=== PATIENT | male | born 2000 | race Caucasian/White ===

== ENCOUNTER 2020-05-23 01:24 | Outpatient (CLI) | payer OTHER, SELFPAY ==
[2020-05-23 19:31] LABS: SARS-CoV-2 RNA PCR Negative
== END 2020-05-23 01:25 | disposition home or self-care (01) ==
LOC: ANHCOVIDDT 01:27
PROVIDERS: PCP Pediatrics; Visit Provider Otolaryngology
DX: Z01.818 Encounter for other preprocedural examination (principal); Z20.828 Contact with and (suspected) exposure to other viral communicable diseases
CPT/HCPCS: 87635; C9803; U0003

== ENCOUNTER 2020-05-26 00:18 | Day surgery (SDC) | payer OTHER, SELFPAY ==
[2020-05-18 12:09] VITALS: BMI 25.9
--- NOTE | 2020-05-25 09:57 | P.PNAN_ITS ---
Anes - Initial Pre Proc Eval Procedure: Operation Date: 05/26/20 07:45 Proposed Procedures p Left Tympanoplasty - Olaf Quinones MD Date/Time: 05/25/20 09:57 Surgeon: Olaf Quinones MD Pre Op Diagnosis: Left tympanic membrane perforation Patient Data Age: 19 Gender: M Height: 1.78 m Weight: 81.8 kg Allergies Allergy/AdvReac Type Severity Reaction Status Date / Time No Known Allergies Allergy Mild Unverified 05/18/20 12:17 Home Medications Medication Instructions Recorded Confirmed Type montelukast 10 mg tablet 10 mg PO DAILY 11/28/19 05/18/20 History multivitamin [Multivitamin-20] 1 tablet PO DAILY 05/18/20 05/18/20 History Patient hx anesthesia problems: none Family hx anesthesia problems: none [facility] Past Medical History Medical History (Updated 05/25/20 @ 09:58 by Ney Beth DO) History of Langford's sarcoma s/p chemo/radiation Surgical History Surgical History (Updated 05/25/20 @ 09:58 by Ney Beth DO) S/P 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 Social History Social History Smoking status: Never smoker Second hand tobacco smoke exposure: No Alcohol intake: current Drinks per week: 6 Substance use: never Substance use type: does not use Living arrangements: with family Spiritual care concerns: No Anes - Eval Final PreProcedure Day of Procedure 05/25/20 09:57 Patient weight: overweight Heart: regular rate and rhythm Lungs: clear to auscultation and normal air movement Airway: Mallampati scale class II Neurological: alert and oriented Last oral intake: >/= 8 hours ASA classification: II Emergent: no Anesthetic plan: proceed Anesthesia type and monitoring: general LMA and standard monitoring Informed Consent: The patient's anesthetic plan and its attendant risks and benefits were discussed with the patient/family/POA. Questions were solicited and answers provided to the satisfaction of the patient/family/POA.
--- NOTE | 2020-05-26 06:03 | PM.HPGS ---
History of Present Illness History of Present Illness Consent: Risks, benefits, and alternatives have been discussed and questions answered. Patient agrees to proceed with procedure. 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 Social History Social History Smoking status: Never smoker Second hand tobacco smoke exposure: No Alcohol intake: current Drinks per week: 6 Substance use: never Substance use type: does not use Living arrangements: with family Spiritual care concerns: No Meds Home Medications and Allergies Home Medications Medication Instructions Recorded Confirmed Type montelukast 10 mg tablet 10 mg PO DAILY 11/28/19 05/18/20 History multivitamin [Multivitamin-20] 1 tablet PO DAILY 05/18/20 05/18/20 History Allergies Allergy/AdvReac Type Severity Reaction Status Date / Time No Known Allergies Allergy Mild Unverified 05/18/20 12:17 Assessment and Plan Additional Plan Plan is a left tympanoplasty
--- NOTE | 2020-05-26 06:04 | WPDHPUPDATE1 ---
History and Physical Update Update Date/Time: 05/26/20 06:04 History and Physical has been reviewed, including an updated exam of the patient. There are NO changes in the patient's condition. Risks, benefits, and alternatives have been discussed and questions answered. Patient agrees to proceed with procedure.
[2020-05-26 06:16] VITALS: BP 120/68; PULSE 83; RESP 16; TEMP 36.1; O2SAT 100
[2020-05-26] MEDS: LACTATED RINGERS 1,000 ML 30 ML IV CONT (07:05)
[2020-05-26] MEDS: LIDO 1%/EPINEPHRINE 1:100,000 50 ML VIAL INFILTRATE (07:40)
[2020-05-26] MEDS: CIPROFLOXACIN HCL 0.3% OP SOLN 2.5 ML BTL 4 DROP EACH EAR (07:42)
[2020-05-26] MEDS: NEOMYCIN/POLYMYXIN B/PRAMOXINE 15 GM CREAM 1 APPLIC TOPICAL (07:59)
--- NOTE | 2020-05-26 08:11 | PM.PROC ---
Procedure Note - Detailed Date of procedure: 05/26/20 Pre-op diagnosis: Left tympanic membrane perforation Post-op diagnosis: same Procedure performed: Tympanoplasty Description of procedure: Patient prepped and draped, the ear was inspected inspection revealed a [] perforation. The vascular strip was injected with xylocaine with adrenaline. Postauricular region was injected with xylocaine with adrenaline and incision was made and temporalis Parres fascia graft harvested closed with Monocryl and glue consent and the bed of the fascia graft was crushed and dried the ear was inspected edges of the perforation strip of squame with a small straight pick. The graft placed in an underlay fashion after packing the middle ear with Surgicel. The patient awakened returned to recovery in good condition Anesthesia: GLMA Surgeon: Olaf Quinones MD Estimated blood loss (mL): 0 Drains: No Packing: No Pathology: none sent Complications: No immediate complications Condition: stable Disposition: PACU Findings: Left tympanic membrane perforation
[2020-05-26 08:20] VITALS: BP 111/53; PULSE 78; RESP 12; TEMP 36.1; O2SAT 100
[2020-05-26 08:35] VITALS: BP 111/64; PULSE 73; RESP 12; O2SAT 100
[2020-05-26 08:50] VITALS: BP 114/68; PULSE 72; RESP 15; O2SAT 98
[2020-05-26 08:56] VITALS: BP 114/63; PULSE 72; RESP 16
[2020-05-26 09:20] VITALS: BP 111/72; PULSE 72; RESP 16
== END 2020-05-26 09:34 | disposition home or self-care (01) ==
PROVIDERS: PCP Pediatrics; Visit Provider Otolaryngology
PROC: (CPT 69620; principal; 2020-05-26 07:45)
DX: H72.92 Unspecified perforation of tympanic membrane, left ear (principal)
CPT/HCPCS: 69620; A9270; J0171; J1100; J2250; J2405; J2704; J3010; J7120